=== PATIENT | male | born 1965 | race American Indian/Alaskan Native ===

== ENCOUNTER 2017-01-15 10:16 | Day surgery (SDC) | payer MEDICAID ==
[2017-01-15] MEDS ORDERED: Lactated Ringer's 500 ML IV ONE (10:38)
[2017-01-15 11:59] VITALS: O2SAT 100
[2017-01-15] MEDS ORDERED: Midazolam 2 MG/2 ML VIAL ONE (13:15)
[2017-01-15] MEDS ORDERED: Propofol 10 mg/ml Inj (20 ML) ONE (13:15)
[2017-01-15] MEDS ORDERED: ePHEDrine 50 mg/ml Inj ONE (13:21)
[2017-01-15 14:13] VITALS: BP 101/51; PULSE 85; RESP 16; TEMP 96.1
== END 2017-01-15 14:15 | disposition home or self-care (01) ==
LOC: H.ENDO 10:16
PROVIDERS: ATTEND Internal Medicine Gastroenterology
DX: Z12.11 Encounter for screening for malignant neoplasm of colon (principal); I10 Essential (primary) hypertension; Z21 Asymptomatic human immunodeficiency virus [HIV] infection status; K64.0 First degree hemorrhoids